=== PATIENT | male | born 1990 | race Caucasian/White ===

== ENCOUNTER 2020-05-12 18:37 | Emergency (ER) | payer BC ==
[2020-05-12 19:31] VITALS: BP 146/93
--- NOTE | 2020-05-12 19:33 | ER Document Report ---
HPI - HPI Time Seen by Provider: 05/12/20 19:24 Pain Level: Denies Context: Patient is a 30-year-old male who presents to the emergency department with a chief complaint of loss of taste and smell. His symptoms started today. Denies any shortness of breath or difficulty breathing. 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 States that he needs to be tested for Covid for his work. - ROS Systems Reviewed and Negative: Yes All other systems reviewed and negative - CONSTITUTIONAL Constitutional: DENIES: Fever, Chills - EENT EENT: DENIES: Sore Throat, Nasal Drainage-Clear, Nasal Drainage-Purulent, Congestion, Eye problems Notes: See HPI. - NEURO Neurology: DENIES: Headache - CARDIOVASCULAR Cardiovascular: DENIES: Chest pain - RESPIRATORY Respiratory: DENIES: Trouble Breathing, Coughing - GASTROINTESTINAL Gastrointestinal: DENIES: Abdominal Pain, Nausea, Patient vomiting - MUSCULOSKELETAL Musculoskeletal: DENIES: Extremity pain - DERM Skin Color: Normal, Petechiae Past Medical History - General Information source: Patient - Social History Smoking Status: Never Smoker Chew tobacco use (# tins/day): No Frequency of alcohol use: None Drug Abuse: None Family History: Reviewed & Not Pertinent Vertical Provider Document - CONSTITUTIONAL Agree With Documented VS: Yes Exam Limitations: No Limitations General Appearance: No Apparent Distress - HEENT HEENT: Atraumatic, Normocephalic, PERRLA - NECK Neck: Normal Inspection. negative: Lymphadenopathy-Left, Lymphadenopathy-Right - RESPIRATORY Respiratory: Breath Sounds Normal, No Respiratory Distress - GI/ABDOMEN Gastrointestinal: Abdomen Soft, Abdomen Non-Tender - MUSCULOSKELETAL/EXTREMETIES Musculoskeletal/Extremeties: FROM - NEURO Level of Consciousness: Awake, Alert, Appropriate Motor/Sensory: No Motor Deficit, No Sensory Deficit - DERM Integumentary: Warm, Dry, No Rash Course - Re-evaluation Re-evalutation: 05/12/20 The patient was evaluated during the global COVID-19 pandemic and that diagnosis was suspected/considered upon their initial presentation. Their evaluation, treatment and testing was consistent with current guidelines for patients who present with complaints or symptoms that may be related to COVID-19. Vital signs are stable. Follow-up precautions were given. Verbal discharge instructions were given to the patient. They verbalized understanding. They are stable for discharge. - Vital Signs Vital signs: Temp Pulse Resp BP Pulse Ox 98.0 F 102 H 20 182/106 H 97 05/12/20 18:42 05/12/20 18:42 05/12/20 18:42 05/12/20 18:42 05/12/20 18:42 - Laboratory Results Critical Laboratory Results Reviewed: No Critical Results - Radiology Results Critical Radiology Results Reviewed: No Critical Results Discharge - Discharge Clinical Impression: Person under investigation for COVID-19, Loss of taste, Loss of smell Condition: Stable Disposition: HOME, SELF-CARE Instructions: COVID-19 Guidance for Persons Under Investigation Additional Instructions: As a person under investigation for COVID-19, the [place] Department of Health and Human Services (division on public health) advises you to adhere to the following guidance until your test results are reported to you. If your test result is positive, you will receive additional information from your provider and your local health department at that time. Remain at home until you are cleared by the health provider or public health authorities. Keep a log of visitors to your home, notify any visitors to your home of your isolation status. If you plan to move to a new address or leave the [facility], notify the local health department in your [facility]. Call your Doctor or seek care if you have an urgent medical need. Before seeking medical care, call him to get instructions from the provider before arriving at the medical office, clinic, or hospital. Notify them that you are being tested for the virus (COVID-19) so that arrangements can be made, as necessary, to prevent transmission to others in the healthcare setting. Next, notify the local health department in your county. If you develop a fever, body aches, or chills, please take Tylenol 1000 mg every 6 hours as needed for your symptoms.
== END 2020-05-12 19:45 | disposition home or self-care (01) ==
LOC: ER 18:37
DX: U07.1 COVID-19 (principal)
CPT/HCPCS: 99283; U0003; C9803; 87635